=== PATIENT | male | born 1945 | race Caucasian/White ===

== ENCOUNTER → 2019-10-16 | Outpatient (CLI) | payer MEDICARE, OTHER ==
--- NOTE | 2019-10-16 11:16 | RADIOLOGY REPORT (SQ) ---
EXAM DESCRIPTION: L SPINE FLEX/EXT ONLY; LUMBAR SPINE 2 VIEWS IMAGES COMPLETED DATE/TIME: 10/16/2019 10:30 am REASON FOR STUDY: SPONDYLOSIS WITH RADICULOPATHY, LUMBAR REGION M47.26 OTHER SPONDYLOSIS WITH RADIC ULOPATHY, LUMBAR REGION COMPARISON: None. TECHNIQUE: AP and lateral neutral, flexion and extension radiographs of the spine. NUMBER OF VIEWS: Four views. LIMITATIONS: None. FINDINGS: No compression fracture. Multilevel spondylosis. Grade 1 anterolisthesis L3 relative to L4. No instability with flexion and extension. OTHER: Calcified aorta. IMPRESSION: Spondylosis and mild malalignment. No instability. TECHNICAL DOCUMENTATION: JOB ID: [id number] 2010 [employer]- All Rights Reserved Reading location - IP/workstation name: [email or web address]
--- NOTE | 2019-10-16 11:16 | RADIOLOGY REPORT (SQ) ---
EXAM DESCRIPTION: L SPINE FLEX/EXT ONLY; LUMBAR SPINE 2 VIEWS IMAGES COMPLETED DATE/TIME: 10/16/2019 10:30 am REASON FOR STUDY: SPONDYLOSIS WITH RADICULOPATHY, LUMBAR REGION M47.26 OTHER SPONDYLOSIS WITH RADIC ULOPATHY, LUMBAR REGION COMPARISON: None. TECHNIQUE: AP and lateral neutral, flexion and extension radiographs of the spine. NUMBER OF VIEWS: Four views. LIMITATIONS: None. FINDINGS: No compression fracture. Multilevel spondylosis. Grade 1 anterolisthesis L3 relative to L4. No instability with flexion and extension. OTHER: Calcified aorta. IMPRESSION: Spondylosis and mild malalignment. No instability. TECHNICAL DOCUMENTATION: JOB ID: [id number] 2010 [employer]- All Rights Reserved Reading location - IP/workstation name: [email or web address]
== END ==
LOC: OD 09:46
PROVIDERS: ATTEND Nurse Practitioner Family
DX: M47.26 Other spondylosis with radiculopathy, lumbar region (principal)
CPT/HCPCS: 72100; 72120